=== PATIENT | female | born 1950 | race Caucasian/White ===

== ENCOUNTER 2019-12-09 14:01 | Outpatient (CLI) | payer MEDICARE, BC, SELFPAY ==
--- NOTE | 2019-12-09 12:00 | DI.RAD_ITS ---
EXAM: XR HIP LT COMPLETE AP PELVIS CLINICAL HISTORY: eval R hip DJD and L HERLINDA pain. TECHNIQUE: 2D digital imaging was performed. COMPARISON: No exams were available for comparison FINDINGS: BONES: No acute fracture is present. No bony destructive lesion is seen. JOINTS: No dislocation present. There are postsurgical changes of a left total hip replacement. The orthopedic hardware appears in good position. The right hip shows marked narrowing of the joint spac e and subchondral sclerosis. SOFT TISSUE: Normal. IMPRESSION: 1. Left THR. 2. Marked joint space narrowing of the right hip. DATA REPOSITORY: RADIATION DOSE DELIVERED:
== END 2019-12-09 14:21 ==
PROVIDERS: PCP Internal Medicine; Referring Provider Internal Medicine; Visit Provider Student in an Organized Health Care Education/Training Program
DX: Z96.642 Presence of left artificial hip joint (principal); M16.11 Unilateral primary osteoarthritis, right hip; M25.551 Pain in right hip
CPT/HCPCS: 99203; 73502

== ENCOUNTER 2019-12-27 02:00 | Outpatient (CLI) | payer MEDICARE, BC, SELFPAY ==
[2019-12-30 10:14] LABS: SARS-CoV-2 RNA Not Detected (NotDetected); SARS-CoV-2 RNA Source Nasal/Nares
== END 2019-12-27 02:20 ==
PROVIDERS: PCP Internal Medicine; Visit Provider Student in an Organized Health Care Education/Training Program
DX: Z01.818 Encounter for other preprocedural examination (principal); Z11.59 Encounter for screening for other viral diseases; M16.11 Unilateral primary osteoarthritis, right hip
CPT/HCPCS: U0003

== ENCOUNTER 2019-12-27 02:29 | Outpatient (CLI) | payer MEDICARE, BC, SELFPAY ==
[2019-12-27 10:15] LABS: HCT 42.4 % (36.0-46.0); MCH 32.6 pg (27.0-33.0); MCV 98.8 fL (80-95); MPV 9.3 fL (8.0-11.0); Platelet Count 265 10^3/uL (130-400); RBC 4.29 10^6/uL (3.93-5.22); RDW 13.2 % (11.7-14.6); RDW-SD 47.5 fL; WBC 6.04 10^3/uL (4.4-10.8)
[2019-12-27 10:50] LABS: Anion Gap 4.9 mmol/L (3-11); BUN 29 mg/dL (7-18); CO2 31.1 mmol/L (21.0-32.0); CREATININE 0.88 mg/dL (0.55-1.02); Calcium 9.8 mg/dL (8.5-10.1); Chloride 105 mmol/L (98-107); Glucose 103 mg/dL (74-106); Potassium 4.4 mmol/L (3.5-5.1); Sodium 141 mmol/L (136-145)
== END 2019-12-27 02:49 ==
PROVIDERS: PCP Internal Medicine; Visit Provider Student in an Organized Health Care Education/Training Program
DX: Z01.818 Encounter for other preprocedural examination (principal); Z11.59 Encounter for screening for other viral diseases; M16.11 Unilateral primary osteoarthritis, right hip
CPT/HCPCS: 36415; 80048; 85027; 86850; 86900; 86901; U0003

== ENCOUNTER 2019-12-31 06:08 | Observation (INO) | payer MEDICARE, BC, SELFPAY ==
--- NOTE | 2019-12-19 14:20 | PDOC.ANES ---
Date of service: 12/19/19 Time of Service: 14:20 Anesthesia Note Report Anesthesia Note: Anesthesia Note: Asked to review case by Nicole for upcoming HERLINDA. History of pulmonary fibrosis/SOB related to chemotherapy/radiation from Hodgkin lymphoma, CAD (60% LAD stenosis), and moderate aortic stenosis (KIKO 1.2 cm2) with mild AR and LVEF 69%. [place] [facility] [place] (12 mg 0.75% bup, 1 attempt). Given that her cardiac and pulmonary issues have been stable, and she has had a recent HERLINDA under spinal anesthesia without issue, she is an appropriate candidate for surgery at [facility].
[2019-12-31] VITALS (9 sets, daily range): BP systolic 92–135; BP diastolic 32–92; PULSE 57–76; RESP 15–26; TEMP 36.1–36.6; O2SAT 97–100
[2019-12-31] MEDS: Acetaminophen 500 MG TAB 1000 MG PO ×2 (06:59→13:59)
[2019-12-31] MEDS: Celecoxib 200 MG CAP 400 MG PO (06:59)
[2019-12-31] MEDS: Lactated Ringers 1,000 ML 80 ML IV (06:59)
[2019-12-31] MEDS: ceFAZolin 2 GM/50 ML BAG IVPB (07:31)
--- NOTE | 2019-12-31 07:31 | W.PM.DS.N ---
Date of service: 12/31/19 Time of Service: 13:22 DS: Diagnosis Discharge Diagnosis (1) Osteoarthritis of right hip: Status: Acute Discharge Plan Disposition Patient Disposition: HOME Condition: Good Discharge Details Reason For Visit: Right Hip Replacement Admit Date/Time: 12/31/19 06:08 Admit Provider: Papo Rivera Attending Provider: Papo Rivera Primary Care Provider: Mirna Rosales Hospital Course Hospital Course: Patient was admitted to the medical/surgical floor following the procedure. The surgery was tolerated well without any notable medical, surgical, or anesthetic complications. Mobilization began postoperatively. She was voiding spontaneously. Vitals were stable. Physical therapy worked with the patient and was cleared for discharge home. No acute medical issues. Pain was controlled on oral regimen. Home Meds and New Rx's Prescriptions: New acetaminophen 500 mg tablet 1,000 mg PO Q8H PRN (Reason: pain) Qty: 90 RF: 3 aspirin 81 mg tablet,delayed release (DR/EC) 81 mg PO BID Qty: 60 RF: 0 celecoxib 200 mg capsule 200 mg PO BID PRN (Reason: pain) Qty: 60 RF: 1 docusate sodium [Colace] 100 mg capsule 100 mg PO BID PRNQty: 10 RF: 0 oxycodone 5 mg tablet 5 mg PO Q4H PRNQty: 12 RF: 0 Continued atorvastatin 40 mg tablet 40 mg PO HS RF: 0 amlodipine 5 mg tablet 5 mg PO DAILY RF: 0 valacyclovir 500 mg tablet 500 mg PO DAILY PRNRF: 0 esomeprazole magnesium 40 mg capsule,delayed release(DR/EC) 40 mg PO DAILY RF: 0 furosemide 20 mg tablet 20 mg PO DAILY RF: 0 metoprolol succinate 25 mg tablet extended release 24 hr 25 mg PO DAILY RF: 0 losartan 100 mg tablet 100 mg PO DAILY RF: 0 Discontinued aspirin 81 mg Capsule,Delayed Release(Dr/Ec) 81 mg PO DAILY RF: 0 Discharge Instructions Additional Instructions: Dr. Rivera's Total Hip Discharge Instructions Activity: The most important activity is to walk. You should try to take short walks a few times a day. You have no restrictions on movement or positioning, but do not try to force what you do. You will find some stiffness and weakness with hip flexion (lifting your knee). Do not try to strengthen this too early, continue to practice walking and stairs and this will come. - Outpatient physical therapy can be helpful to help return you to a normal gait and improve your flexibility and strength. This can start around 2 weeks. For most patients, it?s not necessary. Usually this is determined at the time of discharge or at the first post-operative visit. - You should wear the TEJAS hose on both legs for 2 weeks. You may remove those at night. These prevent blood pooling and swelling. Dressing: Keep the surgical dressing in place for at least one week, although it may stay in place untill follow-up. It may get wet after 3 days but avoid soaking the dressing. If it gets wet, just lightly pat dry. Most people prefer to cover the dressing with some ClingWrap, Saran Wrap, to keep it dry. After the first week it may be removed if desired and then replaced with light gauze and tape or nothing. It is important to always keep some gauze or the dressing between skin folds, especially when you are sitting, so the incision is not folded over on itself at the belly fold. Medications: - You should take Tylenol and an anti-inflammatory Celebrex as your primary pain control medications. If the Celebrex is too expensive or not covered, you may take 1-2 Aleve twice a day. - You have been prescribed a stronger pain medication Oxycodone for breakthrough pain, take as needed as prescribed. - You should continue your stomach acid reduction agent Esomeprazole to help reduce stomach acid and reflux. - You will be taking Aspirin 81mg twice a day for DVT prevention unless instructed otherwise. This will be for 4 weeks. - If you have constipation you should take Colace or Miralax (both [id number]). It takes most people 3-4 days to have a bowel movement. Follow-up: 2 weeks. If you have any acute concerns or questions, please do not hesitate to contact the office at [phone]. You may contact Dr. Rivera with any questions after hours through the hospital at [phone] or on his cell phone at [phone]. Stand Alone Forms: DSU Post op Instructions Referrals: Papo Rivera MD [ [facility] STAFF PHYSICIAN] - Activity:: Activity as Tolerated Equipment/Supplies:: Walker Diet:: As Tolerated Discharge Orders Discharge Orders: Discharge Order (Routine); Ordered 12/31/19 Ordered By: Papo Rivera DS: Summary Status at Discharge Functional status at discharge: uses cane/walker Overall status at discharge: patient is progressing back to baseline Mental Status: mental status grossly normal Speech and Movement: speech and movement normal Mood: congruent mood Affect: normal affect Exam Psych Mental Status: mental status grossly normal Speech and Movement: speech and movement normal Mood: congruent mood Affect: normal affect DS: Data Vitals/I&O Vitals and I&O: Vital Signs Temperature 36.4 C L 12/31/19 06:32 Pulse 76 12/31/19 06:32 Pulse Rhythm Regular 12/31/19 06:32 Respiratory Rate 16 12/31/19 06:32 Respiratory Effort 12/31/19 06:32 Respiratory Depth Normal 12/31/19 06:32 Respiratory Pattern Normal 12/31/19 06:32 Blood Pressure 114/52 L 12/31/19 06:32 Pulse Oximetry 100 12/31/19 06:32 Oxygen Delivery Method Room Air 12/31/19 06:32 Oxygen Flow Rate 0 12/31/19 06:32 Pain Level 0 12/31/19 06:32 Intake & Output 12/30/19 12/30/19 12/31/19 11:59 23:59 11:59 Weight 71.214 kg 72 kg PFSH Medical History Atrophic vaginitis Bleomycin lung toxicity Chemotherapy-induced neuropathy Chronic headache disorder Coronary atherosclerosis Esophageal motility disorder Fatigue Fibromyositis Gastroesophageal reflux disease Hodgkin lymphoma In remission since 2004 Hypertensive disorder Murmur, heart Surgical History H/O total hip arthroplasty left 04/11/2018 Hx of cholecystectomy Hx of tonsillectomy Social History Smoking/Tobacco Use Status: Never Smoking risk assessment performed?: Yes Drug use: Never Current gender identity: female
[2019-12-31] MEDS: Bupivacaine 0.25% Pres-Free 30 ML VIAL (08:50)
[2019-12-31] MEDS: Ketorolac 30 MG/ML VIAL (08:50)
--- NOTE | 2019-12-31 08:57 | DI.RAD_ITS ---
EXAM: XR HIP RT IN OR CLINICAL HISTORY: Osteoarthritis of right hip TECHNIQUE: 2D and realtime digital imaging was performed. CONTRAST MATERIAL: Refer to procedure report. COMPARISON: No exams were available for comparison FINDINGS: Fluoroscopy was provided for Dr. Rivera during the performance of a placement of a right total hip arthroplasty. Please refer to the procedure report for complete details. Fluoro time: 31.9 seconds IMPRESSION: RADIATION DOSE DELIVERED:
--- NOTE | 2019-12-31 11:11 | PT.INIE ---
Date of service: 12/31/19 Time of Service: 11:11 PT Notes Visit Reasons: Right Hip Replacement Physical Therapy Inpatient Initial Evaluation Date: 12/31/2019 Referring Doctor: Papo Rivera MD PT Orders: PT CONSULT: Status post Ortho surgery Precautions: Fall. Standard. WBAT on right LE. Patient Profile/Admitting Diagnosis: Mohan is a 69-year-old female with osteoarthritis of the right hip and is status post right total hip arthroplasty postoperative day 0. PMHX: Medical History Atrophic vaginitis Bleomycin lung toxicity Chemotherapy-induced neuropathy Chronic headache disorder Coronary atherosclerosis Esophageal motility disorder Fatigue Fibromyositis Gastroesophageal reflux disease Hodgkin lymphoma Hypertensive disorder Social History/Home Situation: Lives with significant other in a private home with no steps to enter. Independent with all aspects of ADLs prior to surgery. Equipment Owned/DME: Front wheeled walker Subjective: Reports 2/10 pain in the right hip with transfer and ambulation tasks. Denies headache, chest pain, and dizziness throughout. Objective: General Observation: Supine in bed. IV in the right UE. TEDS in B legs. Mepilex Ag over surgical incision. Mental Status: Alert and oriented x4 Pain: 2/10 in right hip Vital Signs: Within normal limits as measured by nurse Hoffman immediately before PT session. ROM: Right Upper Extremity: Shoulder Flexion WFL. Shoulder abduction WFL. Elbow flexion WFL. Wrist flexion WFL. Opening and closing of hand WFL. Left Upper Extremity: Shoulder Flexion WFL. Shoulder abduction WFL. Elbow flexion WFL. Wrist flexion WFL. Opening and closing of hand WFL. Right Lower Extremity: Hip flexion WFL. Hip abduction WFL. Knee flexion WFL. Ankle dorsiflexion WFL. Ankle plantarflexion WFL. Left Lower Extremity: Hip flexion WFL. Hip abduction WFL. Knee flexion WFL. Ankle dorsiflexion WFL. Ankle plantarflexion WFL. Strength: Right Upper Extremity: Shoulder flexors 5/5. Shoulder abductors 5/5. Elbow flexors 5/5. Elbow extensors 5/5. Sales Secretary strong. Left Upper Extremity: Shoulder flexors 5/5. Shoulder abductors 5/5. Elbow flexors 5/5. Elbow extensors 5/5. Sales Secretary strong. Right Lower Extremity: Hip flexors 4/5. Hip abductors 4/5. Knee flexors 4/5. Knee extensors 4/5. Ankle dorsiflexors 5/5. Ankle plantarflexors 5/5. Left Lower Extremity:Hip flexors 5/5. Hip abductors 5/5. Knee flexors 5/5. Knee extensors 5/5. Ankle dorsiflexors 5/5. Ankle plantarflexors 5/5. Sensation: Reports numbness to bilateral gluteal areas and feet. Bed Mobility/Transfers: Rolling supervision Supine to sit supervision Sit to supine supervision Sit to stand standby assist, cues given for hand placement Stand to sit standby assist, cues given for hand placement Bed to chair standby assist, cues given for hand placement Chair to bed standby assist, cues given for hand placement Gait: 200 feet using front-wheeled walker with step through gait pattern. Reports feeling funky on the soles of her feet. Stephanie slow. THERAEX: Lateral heel raises x 15, partial knee bends x15 while holding onto front wheeled walker requiring standby assist only and minimal cueing for correct technique. Education on HEP was done for the session as well. Balance: Static Sitting: Normal Dynamic Sitting: Normal Static Standing: Fair Dynamic Standing: Fair Special Tests: Mobility Limitations Standardized Measure [facility] 6 clicks Basic Mobility Inpatient Short Form: Raw Score: 22 CMS Score: 21% deficit Informed Consent/Education: Patient instructed in purpose of PT consult and plan of care. Assessment: Mohan demonstrates the need for wheeled walker for all mobility ADL performance, increased completion time is for an ambulation test before, and increased fall risk due to postoperative status. Mohan is a 69-year-old female with osteoarthritis of the right hip and is status post right total hip arthroplasty postoperative day 0. Patient presents with clinical signs and symptoms consistent with current/admitting diagnoses that have resulted to mobility limitations, gait instability, generalized weakness, and impairment of motor control as demonstrated by the following impairment level findings: 1. Decreased strength to right hip major muscle groups 2. Impaired standing balance Impairments are contributing to the following functional limitations: 1. Inability to safely ambulate without assistive device 2. Increase completion time for mobility ADL performance 3. Increased fall risk Patient is assessed as a 77880 moderate complexity based on the following: History: 69-year-old female with impairment level findings, functional limitations, and past medical history as indicated above Examination: Demonstrable impairment in strength, balance, and mobility level with underlying impairments and functional limitations as documented above Presentation: Stable Decision Makin moderate complexity Goals: N/A. PT eval and 1 treatment session only for education and training on use of front wheeled walker with mobility ADL performance and for HEP. Plan of Care/Treatment Plan: N/A. PT eval and 1 treatment session only for education and training on use of front wheeled walker with mobility ADL performance and for HEP. DISCHARGE RECOMMENDATIONS: Home when medically cleared by orthopedic surgeon. Outpatient PT services in order to facilitate with premorbid independent level. TREATMENT CODE/TIME: 58310 x 25 minutes, 60514 x 14 minutes beginning at 11:11 AM. Thank you for the opportunity to participate in the care of this patient. Leora Bui PT, DPT, CLT [facility] [place], [place]
--- NOTE | 2019-12-31 13:59 | NUR.NOTE ---
Nursing Note: C/O pain. Tylenol 1000 mg PO given with effect pending. Discharge instructions reviewed. Verballized understanding. Discharge pending arrival of [id number]. Dr. Rivera in.06/06
--- NOTE | 2019-12-31 22:47 | ROE_ITS ---
Date of service: 12/31/19 Time of Service: 09:06 Operative Note Operative Note DATE OF PROCEDURE: 12/31/19 PRE-OP DIAGNOSIS: Right Hip Osteoarthritis POST-OP DIAGNOSIS: same PROCEDURE: Right Anterior Total Hip Arthroplasty SURGEON: Papo Rivera ENVELOPE FOLDING MACHINE ADJUSTER: Antonio Bowman ANESTHESIA: spinal ESTIMATED BLOOD LOSS: 200 PATHOLOGY: none sent COMPLICATIONS: None Patient was transported to: PACU Patient's condition: stable Implants: 1. Depuy [place] Acetabular Component, 52mm 2. Depuy Acetabular Liner, [id number] 3. Depuy Corail Standard Collared Femoral Stem, Size 13 4. Depuy Altrx Ceramic Femoral Head, Size 36+1.5mm Indications: I have seen Jhon in clinic for symptoms of hip arthritis, confirmed with radiographic findings. She has exhausted nonoperative methods and was having significant limitations in daily function and desired better function and less pain. I discussed the technical details of a hip replacement. I explained the risks of the procedure to include, but not limited to, bleeding, infection, pain, stiffness, fracture, damage to nerves and vessels, damage to muscles and tendons, loosening, instability, leg length inequality, need for repeat procedure, blood clot and cardiopulmonary demise. Despite these risks, Fadia elected to proceed. Findings: There was significant signs of arthritis throughout the hip. Procedure Description: Fadia was greeted in the preoperative holding area where the correct side was identified and marked. The consent was reviewed with the patient and signed. The history and physical was updated. All questions were answered. Fadia was taken back to the operating room. A spinal anesthestic was then administered. The feet were wrapped with cast padding and Coban and then placed into the boot liners and then into the boots. Care was taken to protect the skin and make sure the heels were fully down and the boots were stable. The patient was then positioned onto the HANA table. Both legs were held in a neutral position. SCDs were applied. The patient was then slid down onto a peroneal post. A preoperative AP pelvis was obtained to serve as a reference for determining leg lengths. Prophylactic antibiotics in the form of Cefazolin were administered. 1g of Tranxemic Acid was given intravenously within 30 minutes of incision. The right leg was then prepped with Chloraprep and draped in a standard fashion. A second prep with Chloraprep was performed prior to placement of a shower- curtain type drape with Iodine impregnated skin protection. A timeout to confirm correct identity, side and site, procedure, allergies, anesthesia, and medical concerns was performed. An obliquely oriented incision was made starting lateral to the ASIS and running distal over the Tensor Fascia Shahla (TFL) muscle belly toward the fibular head, approximately 10cm. The skin and soft tissue was dissected sharply, through Bert?s fascia, and to the fascia of the TFL. With the fascia and superior border of the IT band identified, the fascia was incised with a new knife just above any perforators from the IT band. The TFL muscle belly was bluntly dissected away from the fascia and moved laterally. The fat between TFL and rectus was identified to ensure the dissection was not within the TFL. Blunt dissection created space between abductors and the capsule and retractor was placed over the lateral femoral neck. The fibers of the rectus femoris tendon were identified and these were freed from the anterior capsule. A second cobra retractor was placed around the medial femoral neck. The TFL was further retracted laterally to show the deep fascia. Careful dissection through this layer identified three main crossing vessels of the lateral femoral circumflex. These were cauterized in multiple locations and then cut without any noticeable bleeding. The TFL was further released bluntly from the deep fascia to expose anterior hip capsule and fat The Fredrick orthopaedic retractor was then placed beneath the TFL and against sartorius and medial soft tissues to protect and retract the soft tissues. A T-capsulotomy was then performed starting at the superior lateral acetabulum and moving distally to the intertrochanteric ridge. These capsular flaps were tagged with a No. 1 Ethibond and elevated from within. The capsular flaps were released to the shoulder of the lateral neck and to the lesser trochanter to give excellent visualization of the proximal femur. A neck osteotomy was performed using an oscillating saw based on preoperative templates. This cut started in the shoulder and of the lateral neck and exited medially. The saw was at all times directed medially to avoid injury to the greater trochanter. 6cm of traction was applied to the leg and the osteotomy opened. The femoral head was removed with a corkscrew, making sure to protect the TFL on its exit. Traction was released after head removal. This was measu red on the back table to determing the starting reamer size. Portions of the rectus obscuring visualization were minimally elevated off the superior acetabulum. An anterior retractor was placed over the anterior wall between capsule and labrum and attached to the Gripper retraction system. A posterior retractor was placed similarly. This provided excellent visualization. The contents of the cotyloid fossa were removed with electrocautery and the labrum was removed with a knife. There was a notable floor osteophyte. There was significant chondromalacia of the superior acetabulum. Acetabular reaming began with a 48mm reamer. This first reaming was directed anterior to posterior and medial to get down to the true floor. This was inspected and reamed until the true floor was reached. The anterior retractor was then released and entry and exit was provided by traction on the capsular flaps. I then reamed sequentially up to a 52mm reamer where good fit was obtained. The larger reamers were oriented based on anatomical reference of the anterior and lateral thompson to ensure proper abduction and anteversion. Positioning and size was confirmed with the fluoroscopy. A 52mm Depuy [place] acetabular component was selected. The acetabulum was reamed around the periphery with the selected acetabular size to prevent a rim fit. The deep tissues were irrigated. The acetabular component was then impacted in a position of about 40-45 degrees of abduction and 15-20 degrees of anteversion, using the patient?s anatomy as the ultimate landmark. Fluoroscopy was used to confirm this. There was excellent ground support equipment assembler of the acetabular component and the inserting handle was removed. The acetabular liner, Depuy [id number] polyethylene liner, was inserted and lined up with the tines of the acetabular component. There was no soft tissue interposition. The liner was then impacted into position and confirmed to be well-seated. A portion of the james-articular cocktail was then injected around the acetabulum into the capsule and periosteum. This cocktail consisted of 50cc of 0.25% Bupivicaine and 20cc of Exparel, expanded to a total of 120cc. Traction was released from the femur. The leg was rotated to 120 degrees. Any remaining medial capsule was released until the lesser trochanter was easily palpable. A Graf retractor was placed medially. The lateral capsule was further released into the shoulder to allow access to the greater trochanter. A Graf retractor was placed over the greater trochanter which allowed the trochanter to flip in front of the capsule for excellent exposure. The leg was brought down into maximal extension and 20 degrees of adduction while ensuring there was no impingement on the acetabulum. Any remnant capsule within the trochanter was released. Piriformis and obturator externis were identified and protected. There was excellent access to the proximal femur. The lateral neck remnant was removed with a rongeur. A blunt canal probe was used to identify the canal and trajectory for later broaching. A box osteotome initiated the broach course. A small curved rasp and a curved curette were used to work laterally. Broaching then began with a size 8 Corail broach. This was inserted manually around the trochanter and into the canal before mallet blows. The broach was seated to a few millimeters below the cut level based on the neck cut and the preoperative template. Sequential broaching was continued with the [employer] pneumatic broaching device until a tight fit was obtained with good rotational control of the femur. A trial standard neck was inserted along with a +1.5 trial head. The leg was brought out of extension and adduction and then reduced with traction and internal rotation. The leg was stable anteriorly in a position of 30 degrees of extension and 90 degrees of external rotation. Fluoroscopy was used to ensure there was no fracture and the stem was seated well. Leg lengths were checked with an AP pelvis and pelvic reference points. [employer] navigation system was used to confirm appropriate positioning and leg length and offset. Once content with the desired offset and leg lengths, the leg was brought back into extension, external rotation and adduction. The periosteum and surrounding tissue was injected with remaining portion of the james-articular cocktail. The proximal femur was irrigated as well as the deep tissues. The Depuy Corail standard collared stem, size 13, was then manually inserted into the proximal femur making sure to control rotation. It was then malleted into position with light blows, giving breaks to allow bone expansion and decrease risk of fracture. The selected Depuy Altrx Ceramic Head, size 36+1.5mm, was then placed onto the clean and dry trunnion and secured with impaction onto the tapered fit. The leg was brought back out of extension and adduction and reduced with traction and internal rotation. Stability was confirmed with no shuck at 90 degrees of external rotation and 30 degrees of extension. No impingement through range of motion arc. Final x-ray images were obtained with fluoroscopy to confirm adequate positioning and no intraoperative fracture. The deep tissues were thoroughly irrigated with Irrisept chlorhexadine solution. The second dose of TXA 1g was administered intravenously.The capsule was then reapproximated with the previously placed Ethibond sutures. The TFL fascia was finally closed with a No. 2 Stratafix, barbed suture. Deep tissues were then reapproximated with 0 Vicryl and a running 2-0 Vicryl. The skin was closed with a running 4-0 Monocryl in a subcuticular fashion. This was reinforced with skin glue. A Mepilex silver dressing was applied. At the end of the case, all counts were correct. Fadia was transferred to the hospital bed without difficulty and suffering no apparent complication. She has a good prognosis. Physical therapy will start today and without restrictions, weight-bearing as tolerated. Aspirin 81mg BID will be used for DVT prophylaxis.
== END 2019-12-31 14:13 | disposition home or self-care (01) ==
PROVIDERS: Admitting Provider Student in an Organized Health Care Education/Training Program; PCP Internal Medicine; Visit Provider Student in an Organized Health Care Education/Training Program
PROC: (CPT 27130; principal; 2019-12-31 07:30)
DX: M16.11 Unilateral primary osteoarthritis, right hip (principal); I25.10 Atherosclerotic heart disease of native coronary artery without angina pectoris; I35.0 Nonrheumatic aortic (valve) stenosis; G62.2 Polyneuropathy due to other toxic agents; T45.1X5S Adverse effect of antineoplastic and immunosuppressive drugs, sequela
CPT/HCPCS: 27130; 97162; 97530; NC; 73501; J0690; J1885; J2405

== ENCOUNTER 2020-01-16 10:15 | Outpatient (CLI) | payer MEDICARE, BC, SELFPAY ==
--- NOTE | 2020-01-16 09:00 | DI.RAD_ITS ---
EXAM: XR HIP RT COMPLETE AP PELVIS CLINICAL HISTORY: 1st post op brittnee. TECHNIQUE: 2D digital imaging was performed. COMPARISON: CR XR HIP LT COMPLETE AP PELVIS from 12/09/2019 FINDINGS: BONES: There are stable post operative changes present. No fracture or dislocation. JOINTS: The joint spaces are well maintained. No joint effusion is present. SOFT TISSUE: Normal. IMPRESSION: Stable postoperative changes. DATA REPOSITORY: RADIATION DOSE DELIVERED:
== END 2020-01-16 10:35 ==
PROVIDERS: PCP Internal Medicine; Referring Provider Internal Medicine; Visit Provider Student in an Organized Health Care Education/Training Program
DX: Z96.641 Presence of right artificial hip joint (principal); Z47.1 Aftercare following joint replacement surgery
CPT/HCPCS: 73502

== ENCOUNTER → 2020-02-14 08:28 | Outpatient (BNVA) | payer MEDICARE, BC, SELFPAY | PROVIDERS: PCP Internal Medicine; Referring Provider Internal Medicine; Visit Provider Student in an Organized Health Care Education/Training Program | DX: Z96.641 Presence of right artificial hip joint (principal); Z47.1 Aftercare following joint replacement surgery ==

== ENCOUNTER 2020-03-26 11:33 | Outpatient (CLI) | payer MEDICARE, BC, SELFPAY ==
--- NOTE | 2020-03-26 09:45 | DI.RAD_ITS ---
EXAM: XR HIP RT AP LAT ONLY CLINICAL HISTORY: R HERLINDA. TECHNIQUE: 2D digital imaging was performed. COMPARISON: CR XR HIP RT COMPLETE AP PELVIS from 01/16/2020 FINDINGS: There is stable alignment of the components of the prosthesis of the right knee. No fracture or loos ening. Appearance is unchanged from December 2019. IMPRESSION: DATA REPOSITORY: RADIATION DOSE DELIVERED:
== END 2020-03-26 11:53 ==
PROVIDERS: PCP Internal Medicine; Referring Provider Internal Medicine; Visit Provider Student in an Organized Health Care Education/Training Program
DX: Z96.641 Presence of right artificial hip joint (principal); Z47.1 Aftercare following joint replacement surgery
CPT/HCPCS: 73502

== ENCOUNTER → 2020-05-21 09:13 | Outpatient (BNVA) | payer MEDICARE, BC, SELFPAY | PROVIDERS: PCP Internal Medicine; Referring Provider Internal Medicine; Visit Provider Student in an Organized Health Care Education/Training Program | DX: Z47.1 Aftercare following joint replacement surgery (principal); Z96.641 Presence of right artificial hip joint; M25.551 Pain in right hip | CPT/HCPCS: 99213 ==

== ENCOUNTER 2020-06-01 01:45 | Outpatient (CLI) | payer MEDICARE, BC, SELFPAY ==
--- NOTE | 2020-06-01 07:45 | DI.CT_ITS ---
EXAM: CT LOWER EXTREMITY RT WO CLINICAL HISTORY: pain after right HERLINDA,Z96.649,Z96.641,H/O TOTAL RT HIP REPLACEMENT. TECHNIQUE: Imaging Protocol: Axial computed tomography images with coronal and sagittal reformatted images were created and reviewed. COMPARISON: CR XR HIP RT AP LAT ONLY from 03/26/2020 FINDINGS: Bones: The patient has a right total hip replacement. No lucencies are seen in or about the orthope dic hardware to suggest loosening or infection. The osseous structures and articular surfaces are in tact. Bony alignment is satisfactory. No cellulitic or osteomyelitic changes are identified. There is no evidence of joint space narrowing or cystic degeneration seen. No lytic or sclerotic lesions a re identified. Soft Tissues: Normal. IMPRESSION: Stable right total hip replacement. No CT evidence to suggest loosening or infection. RADIATION DOSE DELIVERED: 269.26mGy.cm Total DLP 269.26mGy.cm Total DLP DATA REPOSITORY: All CT scans at this facility are submitted to the National Radiology Data Registry (NRDR) Dose Index Registry (DIR) with the [employer] [place] (A[employer]). RADIATION OPTIMIZATION: All CT scans at this facility use at least one of these dose optimization te chniques: automated exposure control; mA and/or kV adjustment per patient size (includes targeted exa ms where dose is matched to clinical indication); or iterative reconstruction.
== END 2020-06-01 02:05 ==
PROVIDERS: PCP Internal Medicine; Visit Provider Physician Assistant
DX: M25.551 Pain in right hip (principal); Z96.641 Presence of right artificial hip joint
CPT/HCPCS: 73700

== ENCOUNTER 2020-06-01 04:32 | Outpatient (CLI) | payer MEDICARE, BC, SELFPAY ==
[2020-06-01 11:12] LABS: Abs Immature Grans 0.02 10^3/uL (0.0-0.06); Absolute Basophil Count 0.06 10^3/uL (0.0-0.2); Absolute Eosinophil Count 0.33 10^3/uL (0.0-0.7); Absolute Monocyte Count 0.51 10^3/uL (0.1-0.8); Absolute Neutrophil Count 3.42 10^3/uL (1.2-6.7); Basophils % 0.9; Eosinophils % 5.2; HCT 42.5 % (36.0-46.0); HGB 14.1 g/dL (11.2-15.7); Immature Grans % 0.3; Lymphocytes % 31.5; MCH 31.9 pg (27.0-33.0); MCHC 33.2 % (32.0-36.0); MCV 96.2 fL (80-95); MPV 9.2 fL (8.0-11.0); Neutrophils % 54.1; Nucleated RBC 0 %; Platelet Count 270 10^3/uL (130-400); RBC 4.42 10^6/uL (3.93-5.22); RDW 13.1 % (11.7-14.6); RDW-SD 46.5 fL; WBC 6.34 10^3/uL (4.4-10.8)
[2020-06-01 11:16] LABS: ESR 9 mm//hr (0-30)
[2020-06-01 12:09] LABS: C-Reactive Protein 0.12 mg/dL (0.0-0.3)
== END 2020-06-01 04:33 | disposition home or self-care (01) ==
PROVIDERS: PCP Internal Medicine; Visit Provider Physician Assistant
DX: M25.551 Pain in right hip (principal); Z96.641 Presence of right artificial hip joint
CPT/HCPCS: 36415; 85652; 73700; 85025; 86140

== ENCOUNTER 2021-05-03 04:14 | Outpatient (CLI) | payer MEDICARE, SELFPAY ==
[2021-05-03 13:05] LABS: Source Nasal/Nares
[2021-05-03 16:08] LABS: COVID-19 PCR Negative (Negative)
== END 2021-05-03 04:15 | disposition home or self-care (01) ==
LOC: LBO 04:14
PROVIDERS: PCP Internal Medicine; Visit Provider Plastic Surgery
DX: Z20.822 Contact with and (suspected) exposure to COVID-19 (principal); Z01.818 Encounter for other preprocedural examination
CPT/HCPCS: 87635; U0005

== ENCOUNTER 2023-02-15 09:07 | Outpatient (CLI) | payer MEDICARE, SELFPAY ==
--- NOTE | 2023-02-15 06:00 | DI.RAD_ITS ---
Exam(s) XR PAIN CLINIC CERVICAL SP 2V EXAM: XR PAIN CLINIC CERVICAL SP 2V CLINICAL HISTORY: Dx: Cervical Spondylosis TECHNIQUE: 2D and realtime digital imaging was performed. CONTRAST MATERIAL: Refer to procedure report. COMPARISON: No exams were available for comparison FINDINGS: Fluoroscopy was provided for Dr. Downey during the performance of a cervical medial branch block. Ple ase refer to the procedure report for complete details. Ka,r=1.72 mGy IMPRESSION:
[2023-02-15 09:17] VITALS: BP 134/75; PULSE 87; RESP 20; TEMP 36.5; O2SAT 95
[2023-02-15 10:07] VITALS: BP 132/58; PULSE 93; RESP 13; O2SAT 100
[2023-02-15] MEDS: Omnipaque 240 MG/ML 50 ML BTL IJ (10:11)
[2023-02-15] MEDS: Bupivacaine 0.5% Pres-Free 10 ML VIAL IJ (10:11)
--- NOTE | 2023-02-15 10:50 | PDOC.PAIN_ITS ---
Date of service: 02/15/23 Time of Service: 10:50 Pain Managment Procedure Note Procedure Note Procedure Note: PROCEDURE NOTE LEFT SIDED CERVICAL MEDIAL BRANCH BLOCKS Date of Service: February 15, 2023 Patient: Fadia Lomeli Provider: Joce Downey DO, MPH Fadia Lomeli has been referred to the [facility] for cervical medial branch blocks. Pre-operative diagnosis: Cervical Spondylosis without Myelopathy Post-operative diagnosis: Same Pre-procedure pain: VAS= 8-9/10 COMMENTS: I previously evaluated her in the office. Her symptoms are the same. She did slip this morning and bumped the left side of her forehead. Rudywas interviewed and the medical records were reviewed. There were no medical, pharmacologic, radiographic or other structural contraindications to attempting fluoroscopically guided local anesthetic cervical medial branch blocks. Risks and potential side effects were discussed. I also discussed the potential benefit(s) of the procedure with Fadia, and voiced concerns were addressed. After Fadia was completely informed about the procedure, the printed consent form was signed. A standard time-out procedure was performed. Fadia was placed in the lateral decubitus position on the fluoroscopy table with the effected side up. Automated blood pressure cuff and pulse oximeter were applied. The skin entry points for approaching the anatomic target points of the segmental medial branches of Left C3,C4,C5 and C6 were identified with fluoroscopy and marked. The skin at the target site area was thoroughly prepared with Chlorhexadine. The skin was then draped. Next, a 25 gauge 3.5 spinal needle was placed under fluoroscopic guidance down on to the target point (the articular pillar) for each respective segmental medial branch. Position was confirmed in A/P and lateral views. Aspiration revealed no blood or clear fluid. Next, 0.25ml of omnipaque 240 was injected at each level. No contrast following a vascular or neural pattern was visualized under continuous fluoroscopy. Next, 0.25 ml of preservative-free 0.5% bupivicaine was injected at each level. (49 mls of Omnipaque was wasted) There was no unusual discomfort expressed by Fadia. The needles were withdrawn without difficulty. Fadia was observed and was without hemodynamic, neurologic, or allergic reactions.? Fluoroscopic images were digitally archived. Fadia's vital signs were stable throughout the procedure and were as recorded in the docflowsheet by the nursing staff. Provacative testing using the Modified Oden's facet loading test Left side Directly before the block VAS (0-10) = 8/10 Five minutes after the block VAS (0-10) = 1/10 Percentage relief obtained with this diagnostic block 90% Any improved physical functioning directly after the blocks? Able to move her neck in all directions with minimal pain Follow up plans and appointments were discussed with Fadia. Fadia was instructed to keep careful note of how the usual pain was modified by these injections. Specifically, to keep a pain diary for the next 4 hours using a numeric pain scale of 0-10 and report these results. Post procedure instruction was given as documented in the nursing documentation and having met discharge criteria, the patient was [facility] from the [facility]. Based on the medial branches blocked today, if Fadia has adequate relief and we are able to proceed to radiofrequency ablation, the treatment should result in the denervation of the Left C3-C4, C4-C5, and C5-C6 facet joints. We would expect to denervate a total of 3 facets during the radiofrequency ablation. COMMENTS: No apparent complications. Post-procedure pain: VAS= 1/10 Fadia will call back with 0-4 hour post-procedure pain scores. I did recommend that she see urgent care for her left forehead laceration. This is a 1 cm full thickness laceration that did not stop bleeding with bandages during the procedure. We did place a sterile strip to close the laceration and recommended urgent care for likely 1-2 stitches. I personally performed the entire procedure. JOCE DOWNEY DO, MPH ABPM&R-subspecialty board certification in Pain Medicine [facility] [facility]
== END 2023-02-15 09:08 | disposition home or self-care (01) ==
LOC: PC 09:07
PROVIDERS: PCP Internal Medicine; Visit Provider Preventive Medicine Occupational Medicine
DX: M54.2 Cervicalgia (principal); M47.812 Spondylosis without myelopathy or radiculopathy, cervical region
CPT/HCPCS: 00123; 64490; 64491; 64492; 72040; Q9967

== ENCOUNTER 2023-03-15 15:13 | Outpatient (CLI) | payer MEDICARE, SELFPAY ==
--- NOTE | 2023-03-15 06:00 | DI.RAD_ITS ---
Exam(s) XR PAIN CLINIC CERVICAL SP 2V EXAM: XR PAIN CLINIC CERVICAL SP 2V CLINICAL HISTORY: Dx: Cervical Spondylosis TECHNIQUE: 2D and realtime digital imaging was performed. Radiologist not present. CONTRAST MATERIAL: None. COMPARISON: No exams were available for comparison FINDINGS: Fluoroscopy was provided for pain management therapy. Please refer to procedure report or details. Radiation Exposure Index: Ka,r=1.53 mGy IMPRESSION: As above. RADIATION DOSE DELIVERED:
[2023-03-15 15:22] VITALS: BP 107/67; PULSE 77; RESP 20; TEMP 36.4; O2SAT 98
--- NOTE | 2023-03-15 15:57 | PDOC.PAIN_ITS ---
Date of service: 03/15/23 Time of Service: 15:57 Pain Managment Procedure Note Procedure Note Procedure Note: PROCEDURE NOTE LEFT SIDED CERVICAL MEDIAL BRANCH BLOCKS Date of Service: March 15, 2023 Patient: Fadia Lomeli Provider: Joce Downey DO, MPH Fadia Lomeli has been referred to the [facility] for cervical medial branch blocks. Pre-operative diagnosis: Cervical Spondylosis without Myelopathy Post-operative diagnosis: Same Pre-procedure pain: VAS= 7/10 COMMENTS: She did very well with her last CMBB on 02/15/23. Rudywas interviewed and the medical records were reviewed. There were no medical, pharmacologic, radiographic or other structural contraindications to attempting fluoroscopically guided local anesthetic cervical medial branch blocks. Risks and potential side effects were discussed. I also discussed the potential benefit(s) of the procedure with Fadia, and voiced concerns were addressed. After Fadia was completely informed about the procedure, the printed consent form was signed. A standard time-out procedure was performed. Fadia was placed in the lateral decubitus position on the fluoroscopy table with the effected side up. Automated blood pressure cuff and pulse oximeter were applied. The skin entry points for approaching the anatomic target points of the segmental medial branches of Left C3,C4,C5, and C6 were identified with fluoroscopy and marked. The skin at the target site area was thoroughly prepared with Chlorhexadine. The skin was then draped. Next, a 25 gauge 3.5 spinal needle was placed under fluoroscopic guidance down on to the target point (the articular pillar) for each respective segmental medial branch. Position was confirmed in A/P and lateral views. Aspiration revealed no blood or clear fluid. Next, 0.25ml of omnipaque 240 was injected at each level. No contrast following a vascular or neural pattern was visualized under continuous fluoroscopy. Next, 0.25 ml of preservative-free 0.5% bupivicaine was injected at each level. (49 mls of Omnipaque was wasted) There was no unusual discomfort expressed by Fadia. The needles were withdrawn without difficulty. Fadia was observed and was without hemodynamic, neurologic, or allergic reactions.? Fluoroscopic images were digitally archived. Fadia's vital signs were stable throughout the procedure and were as recorded in the docflowsheet by the nursing staff. Provacative testing using the Modified Oden's facet loading test Left side Directly before the block VAS (0-10) = 7/10 Five minutes after the block VAS (0-10) = 1/10 Percentage relief obtained with this diagnostic block 90% Any improved physical functioning directly after the blocks? Able to move her neck with ease. Follow up plans and appointments were discussed with Fadia. Fadia was instructed to keep careful note of how the usual pain was modified by these injections. Specifically, to keep a pain diary for the next 4 hours using a numeric pain scale of 0-10 and report these results. Post procedure instruction was given as documented in the nursing documentation and having met discharge criteria, the patient was discharged from the [facility]. Based on the medial branches blocked today, if Fadia has adequate relief and we are able to proceed to radiofrequency ablation, the treatment should result in the denervation of the Left C3-C4, C4-C5, and C5-C6 facet joints. We would expect to denervate a total of 3 facets during the radiofrequency ablation. COMMENTS: No apparent complications. Post-procedure pain: VAS= 1/10 Fadia will call back with 0-4 hour post-procedure pain scores. I personally performed the entire procedure. JOCE DOWNEY DO, MPH ABPM&R-subspecialty board certification in Pain Medicine [facility]
[2023-03-15 16:05] VITALS: BP 124/59; PULSE 87; RESP 20; O2SAT 96
[2023-03-15] MEDS: Nerve Block Tray 1 EACH MC (16:07)
[2023-03-15] MEDS: Bupivacaine 0.5% Pres-Free 10 ML VIAL IJ (16:07)
[2023-03-15] MEDS: Omnipaque 240 MG/ML 50 ML BTL IJ (16:07)
== END 2023-03-15 15:14 | disposition home or self-care (01) ==
LOC: PC 15:13
PROVIDERS: PCP Internal Medicine; Visit Provider Preventive Medicine Occupational Medicine
DX: M54.2 Cervicalgia (principal); M47.812 Spondylosis without myelopathy or radiculopathy, cervical region
CPT/HCPCS: 00123; 64490; 64491; 64492; 72040; J0665; Q9967

== ENCOUNTER 2023-06-01 09:52 | Outpatient (CLI) | payer MEDICARE, SELFPAY ==
--- NOTE | 2023-06-01 06:00 | DI.RAD_ITS ---
Exam(s) XR PAIN CLINIC CERVICAL SP 2V EXAM: XR PAIN CLINIC CERVICAL SP 2V CLINICAL HISTORY: DX: Cervical spondylosis. TECHNIQUE: Fluoroscopy was provided for the referring physician for guidance with performing pain cl inic injection procedure. COMPARISON: No exams were available for comparison FINDINGS: Please see procedure note for details. Fluoro time: 35.9 seconds RADIATION DOSE DELIVERED: Ronnier=3.42 mGy
[2023-06-01 10:11] VITALS: BP 132/58; PULSE 67; RESP 20; TEMP 36.7; O2SAT 98
[2023-06-01] MEDS: Midazolam 2 MG/2 ML VIAL IVP (10:50)
[2023-06-01] MEDS: fentaNYL 100 MCG/2 ML VIAL IVP (10:50)
[2023-06-01 11:45] VITALS: BP 126/56; PULSE 82; RESP 13; O2SAT 100
[2023-06-01] MEDS: Nerve Block Tray 1 EACH MC (11:52)
[2023-06-01] MEDS: Lidocaine 2% Multi-Dose 20 ML VIAL IJ (11:52)
[2023-06-01] MEDS: Bupivacaine 0.5% Pres-Free 10 ML VIAL IJ (11:53)
[2023-06-01] MEDS: Dexamethasone Sod. Phos./Pres-Free 10 MG/ML VIAL IJ (11:53)
[2023-06-01] MEDS: Lactated Ringers 500 ML 80 ML IV (11:55)
[2023-06-01] MEDS: methylPREDNISolone ACETATE 40 MG/ML VIAL (12:02)
--- NOTE | 2023-06-06 07:14 | PDOC.PAIN ---
Date of service: 06/01/23 Time of Service: 11:45 Pain Managment Procedure Note Procedure Note Procedure Note: PROCEDURE NOTE LEFT Cervical Radiofrequency Ablation Date of Service: June 01, 2023 Patient:? Fadia Lomeli? Provider:? Joce Downey DO, MPH Fadia Lomeli [facility] LEFT Cervical Radiofrequency Ablation with the [employer] Machine.? Pre Operative Diagnosis: Cervical Spondylosis without Myelopathy Post Operative Diagnosis: Same Pre procedure pain; VAS= 7/10 Comments: She did very well with her CMBBs PROCEDURE: 1. Left C3-C4 facet joint radiofrequency denervation 2. Left C4-C5 facet joint radiofrequency denervation 3. Left C5-C6 facet joint radiofrequency denervation Fadia?was interviewed and the medical record was reviewed.? There were no medical, pharmacologic, radiographic or other structural contraindications to attempting fluoroscopically guided LEFT Cervical Radiofrequency Ablation.?Risks and expected side effects as well as potential benefit of the procedure were reviewed with Fadia, and the patient's voiced concerns were addressed.? The printed consent form was signed.? Standard time-out procedure was performed. Fadia was brought to the procedure suite and placed on the exam table in a comfortable lateral recumbent position. A grounding pad was placed on the left abdomen. The place for the needle placement was obtained by manual palpation as well as radiographic confirmation. The sterile field was prepped by chlorhexidine and sterile drapes. Local anesthesia, both superficial and deep was provided by local infiltration of 3 ml Lidocaine 1%. Using fluoroscopic guidance, A 17g 50 mm radiofrequency introducer needle with a 2 mm active tip was placed overlying the left C3 cervical vertebra from the lateral approach and was advanced until bony contact was felt with the articular pillar. Attempted aspiration revealed no blood or cerebrospinal fluid. Motor testing was then performed with 2.0 volts and no upper extremity motor stimulation was observed. 1 ml of 2% Lidocaine was injected through the RF needle. A radiofrequency lesion of the Left medial branch of C3 was then performed at 80 degrees Celsius for 2 minutes and 30 seconds. There was no unusual discomfort expressed by Fadia. The needles were withdrawn without difficulty. Fadia was observed and was without hemodynamic, neurologic, or allergic reactions. Fluoroscopic images were digitally archived. The same procedure was repeated for Left C4, C5 and C6 medial branches. POST PROCEDURE EVALUATION: IMPRESSION: 1. Medication given is documented in the MAR 2. Follow up plan: [facility] to contact [facility] needed. This procedure may be repeated if the patient achieves at least 50% improvement in pain and/or function for at least 6 months. 3. Estimated Blood Loss: <5ml 4. Fluoroscopy time: Documented in the EMR Follow up plans and appointments were discussed with Fadia. Post procedure instruction was given as documented in nursing documentation and having met discharge criteria, Fadia was [facility] from the [facility]. COMMENTS: No apparent complications. Post-procedure pain: VAS= 2/10. I personally performed this entire procedure. JOCE DOWNEY DO, MPH ABPM&R - Subspecialty board certification in Pain Medicine [facility] [facility]
--- NOTE | 2023-06-06 19:45 | PDOC.PAIN ---
Date of service: 06/01/23 Time of Service: 12:00 US Guided Injections Type of Ultrasound Guided Injection: Middle back Bilateral Paraspinous and Rhomboid muscle Trigger Point Injection Referral Patient has been referred to the [facility] for Bilateral Paraspinous and Rhomboid muscle Middle back Trigger Point Injection for a chief complaint of Pre-Procedural Pain Score Pre-procedural pain score: 5/10 Reason for Exam Muscle pain Patient Interview Patient was interviewed and medical record reviewed: Yes There were no contraindications to performing an US guided procedure. Risks,expected side effects, potential benefits were reviewed. The patient consent form was signed and witnessed. Standard time out procedure was performed. Patient Safety No skin abnormalities at the insertion sites Procedure Description No sedation given for procedure Patient was placed in the prone position and the following Pulse Ox applied. Pre-Procedure ultrasound scanning performed using a Linear 18 MHz probe Site Preparation Chloroprep Local Anesthesia of Lidocaine 1%. A 21 G 3.5 Pajunk ultrasound needle was placed under live US guidance using an in-plane approach to the target area. After visualization of the needle tip at the target area Depo-Medrol 40mg per cc were used. Total of Injectate/Medication Note: 1cc Depomedrol and 5 cc 1% Lidocaine Negative aspiration for blood. [place] were removed without difficulty. Ultrasound images were captured and stored. Patient Mental Status Patient was alert during procedure Vital Signs Vital signs were stable throughout the procedure and recorded by nursing. Follow Up/Discharge Follow up plans and appointments were discussed with patient. Post procedure instruction was given as documented in nursing documentation. Discharge criteria met and patient discharged from Pain Management Center: Yes Post Procedure Pain Post Procedure Pain: 1/10 Patient tolerated procedure well Procedure Outcome: Successful Trigger Point Injection 3+muscles Non US Guided Injections Procedure Description Patient was placed in the prone position Post Procedure Pain Post Procedure Pain: 1/10
== END 2023-06-01 09:53 | disposition home or self-care (01) ==
LOC: PC 09:52
PROVIDERS: PCP Internal Medicine; Visit Provider Preventive Medicine Occupational Medicine
DX: M54.2 Cervicalgia (principal); M47.812 Spondylosis without myelopathy or radiculopathy, cervical region
CPT/HCPCS: 64633; 64634; 72040; J0665; J1010; J1100; J2003; J2250; J3010

== ENCOUNTER → 2023-09-13 20:57 | Outpatient (CLI) | payer MEDICARE, SELFPAY ==
--- NOTE | 2023-09-13 15:35 | DI.RAD_ITS ---
Exam(s) XR CERVICAL SP COMP W FLEX/EXT EXAM: XR CERVICAL SP COMP W FLEX/EXT CLINICAL HISTORY: M54.2 Cervicalgia, Posterior midline lower neck pain. TECHNIQUE: 2D digital imaging was performed. Seven views were performed. COMPARISON: No exams were available for comparison FINDINGS: BONES: No fracture or destructive lesion. Vertebral body height is maintained. Degenerative changes of the facet joints. DISKS: C2-3 and C3-4 disc spaces are maintained. There is mild disc space narrowing at C4-5. There is severe disc space narrowing at C5-6 and moderate disc space narrowing at C6-7. Endplate osteophyt es are seen. There is neural foraminal narrowing on the left at C4-5 and C5-6 at on the right from C 4-5 through C6-7. ALIGNMENT: Some reversal of the normal cervical lordosis and mild spondylolisthesis at C4-5 secondary to degenerative changes. Flexion and extension lateral views were performed in addition to the neut ral lateral view. There is subluxation with flexion or extension. There is limited range of motion. SOFT TISSUE: Benign calcifications in the upper left chest. The lung apices are clear. IMPRESSION: Advanced degenerative changes, greatest at C4-5 and C5-6. DATA REPOSITORY: RADIATION DOSE DELIVERED:
--- NOTE | 2023-09-13 15:35 | DI.RAD_ITS ---
Exam(s) XR THORACIC SPINE COMPLETE EXAM: XR THORACIC SPINE COMPLETE CLINICAL HISTORY: M54.9 dorsalgia, unspecifiedMid-back pain. TECHNIQUE: 2D digital imaging was performed. Three views. COMPARISON: No exams were available for comparison FINDINGS: BONES: There is no fracture or destructive lesion. The vertebral bodies and posterior elements are un remarkable. ALIGNMENT: Within normal limits. DISKS: Interverebral disc spaces show mild narrowing anteriorly. Small endplate osteophytes.. SOFT TISSUE: Small calcified mediastinal lymph nodes consistent with old granulomatous disease. Hear t size is normal. IMPRESSION: Mild degenerative changes. DATA REPOSITORY: RADIATION DOSE DELIVERED:
== END ==
PROVIDERS: PCP Internal Medicine; Visit Provider Preventive Medicine Occupational Medicine
DX: M51.34 Other intervertebral disc degeneration, thoracic region; M50.321 Other cervical disc degeneration at C4-C5 level; M50.322 Other cervical disc degeneration at C5-C6 level; M50.323 Other cervical disc degeneration at C6-C7 level
CPT/HCPCS: 72052; 72072

== ENCOUNTER 2023-11-10 11:43 | Outpatient (CLI) | payer MEDICARE, SELFPAY ==
[2023-11-10] VITALS (7 sets, daily range): BP systolic 133–178; BP diastolic 60–101; PULSE 83–93; RESP 11–18; TEMP 36.9; O2SAT 97–100
--- NOTE | 2023-11-10 06:00 | DI.RAD_ITS ---
Exam(s) XR PAIN CLINIC THORACIC SP 2V EXAM: XR PAIN CLINIC THORACIC SP 2V CLINICAL HISTORY: DX: Thoracic spondylosis. TECHNIQUE: Fluoroscopy was provided for the referring physician for guidance with performing pain cl inic injection procedure. COMPARISON: No exams were available for comparison FINDINGS: Please see procedure note for details. Fluoro time: 43.1 seconds RADIATION DOSE DELIVERED: nargis Trujillo=4.01 mGy
--- NOTE | 2023-11-10 12:39 | PDOC.PAIN_ITS ---
Date of service: 11/10/23 Time of Service: 12:39 Pain Managment Procedure Note Procedure Note Procedure Note: PROCEDURE NOTE BILATERAL THORACIC MEDIAL BRANCH BLOCKS Date of Service: November 10, 2023 Patient: Fadia Lomeli Provider: Joce Downey DO, MPH Fadia Lomeli has been referred to the [facility] for cervical medial branch blocks. Pre-operative diagnosis: Thoracic Spondylosis without Myelopathy Post-operative diagnosis: Same Pre-procedure pain: VAS= 6/10 COMMENTS: I previously evaluated her in the office. On fluoroscopic guidance I determined the painful facets were the bilateral T5-T6 and T6-T7 levels. Fadia? was interviewed and the medical records were reviewed. There were no medical, pharmacologic, radiographic or other structural contraindications to attempting fluoroscopically guided local anesthetic thoracic medial branch blocks. Risks and potential side effects were discussed. I also discussed the potential benefit(s) of the procedure with Fadia, and voiced concerns were addressed. After Fadia was completely informed about the procedure, the printed consent form was signed. A standard time-out procedure was performed. Fadia was placed in the prone position on the fluoroscopy table with the effected side up. Automated blood pressure cuff and pulse oximeter were applied. The skin entry points for approaching the anatomic target points of the segmental medial branches of bilateral T4, T5, and T6 were identified with fluoroscopy and marked. The skin at the target site area was thoroughly prepared with Chlorhexadine. The skin was then draped. Next, a 25 gauge 3.5 spinal needle was placed under fluoroscopic guidance down on to the target point for each respective segmental medial branch. Position was confirmed in A/P views. Aspiration revealed no blood or clear fluid. Next, 0.25ml of omnipaque 240 was injected at each level. No contrast following a vascular or neural pattern was visualized under continuous fluoroscopy. Next, 0.25 ml of preservative-free 0.5% bupivicaine was injected at each level. (47 mls of Omnipaque was wasted) There was no unusual discomfort expressed by Fadia. The needles were withdrawn without difficulty. Fadia was observed and was without hemodynamic, neurologic, or allergic reactions.? Fluoroscopic images were digitally archived. Fadia's vital signs were stable throughout the procedure and were as recorded in the doc flowsheet by the nursing staff. Provacative testing using the Modified Oden's facet loading test- Right side Directly before the block VAS (0-10) = 6/10 5 minutes after the block VAS (0-10) = 0/10 Percentage relief obtained with this diagnostic block 100% Any improved physical functioning directly after the blocks? Able to extend, flex and twist her mid-back without pain. Follow up plans and appointments were discussed with Fadia. Fadia was instructed to keep careful note of how the usual pain was modified by these injections. Specifically, to keep a pain diary for the next 4 hours using a numeric pain scale of 0-10 and report these results. Post procedure instruction was given as documented in the nursing documentation and having met discharge criteria, the patient was discharged from the [facility]. Based on the medial branches blocked today, if Fadia has adequate relief and we are able to proceed to radiofrequency ablation, the treatment should result in the denervation of the Bilateral T5-T6 and T6-T7 facet joints. We would expect to denervate a total of 4 facets during the radiofrequency ablation. COMMENTS: No apparent complications. Post-procedure pain: VAS= 0/10. Fadia will call back with 0-4 hour post-procedure pain scores. I personally performed the entire procedure. JOCE DOWNEY DO, MPH ABPM&R-subspecialty board certification in Pain Medicine [facility] [facility]
[2023-11-10] MEDS: Bupivacaine 0.5% Pres-Free 10 ML VIAL IJ (12:49)
[2023-11-10] MEDS: Nerve Block Tray 1 EACH MC (12:49)
[2023-11-10] MEDS: Omnipaque 240 MG/ML 50 ML BTL IJ (12:49)
== END 2023-11-10 11:44 | disposition home or self-care (01) ==
LOC: PC 11:44
PROVIDERS: PCP Internal Medicine; Visit Provider Preventive Medicine Occupational Medicine
DX: M47.814 Spondylosis without myelopathy or radiculopathy, thoracic region (principal); M54.59 Other low back pain
CPT/HCPCS: 64490; 64491; 72070; J0665; Q9967

== ENCOUNTER 2023-12-27 10:00 | Outpatient (CLI) | payer MEDICARE, SELFPAY ==
[2023-12-27 10:07] VITALS: BP 142/61; PULSE 94; RESP 20; TEMP 36.7; O2SAT 100
[2023-12-27 10:31] VITALS: PULSE 101; RESP 15; O2SAT 100
[2023-12-27 10:32] VITALS: BP 159/85; PULSE 100; PULSE 99; RESP 14; O2SAT 100
[2023-12-27 10:40] VITALS: PULSE 99; RESP 12; O2SAT 100
[2023-12-27 10:46] VITALS: BP 164/83; PULSE 92; PULSE 94; RESP 18; O2SAT 100
--- NOTE | 2023-12-27 10:46 | PDOC.PAIN ---
Date of service: 12/27/23 Time of Service: 10:46 Pain Managment Procedure Note Procedure Note Procedure Note: PROCEDURE NOTE Bilateral Thoracic Medial Branch Blocks Date of Service: December 27, 2023 Patient: Fadia Lomeli Provider: Joce Downey DO, MPH Fadia Lomeli has been referred to the [facility] for thoracic medial branch blocks. Pre-operative diagnosis: Thoracic Spondylosis without Myelopathy ICD-10 M47.814 Post-operative diagnosis: Same Pre-procedure pain: VAS= 9/10 COMMENTS: She did very well with the first set of TMBBs on 11/10/23 Fadia? was interviewed and the medical records were reviewed. There were no medical, pharmacologic, radiographic or other structural contraindications to attempting fluoroscopically guided local anesthetic thoracic medial branch blocks. Risks and potential side effects were discussed. I also discussed the potential benefit(s) of the procedure with Fadia, and voiced concerns were addressed. After Fadia was completely informed about the procedure, the printed consent form was signed. A standard time-out procedure was performed. Fadia was placed in the prone position on the fluoroscopy table. Automated blood pressure cuff and pulse oximeter were applied. The skin entry points for approaching the anatomic target points of the segmental medial branches of bilateral T4, T5, and T6 were identified with fluoroscopy and marked. The skin at the target site area was thoroughly prepared with Chlorhexadine. The skin was then draped. Next, a 25 gauge 3.5 spinal needle was placed under fluoroscopic guidance down on to the target point (the articular pillar) for each respective segmental medial branch. Position was confirmed in A/P and lateral views. Aspiration revealed no blood or clear fluid. Next, 0.25ml of omnipaque 240 was injected at each level. No contrast following a vascular or neural pattern was visualized under continuous fluoroscopy. Next, 0.25 ml of preservative-free 0.5% bupivicaine was injected at each level. There was no unusual discomfort expressed by Fadia. The needles were withdrawn without difficulty. (49 mls of Omnipaque was wasted) Fadia was observed and was without hemodynamic, neurologic, or allergic reactions.? Fluoroscopic images were digitally archived. Provacative testing - Left side Right Side Directly before the block VAS (0-10) = 9/10 VAS (0-10) = 9/10 Five minutes after the block VAS (0-10) = 1/10 VAS (0-10) = 1/10 Percentage relief obtained with this diagnostic block 90% 90% Any improved physical functioning directly after the blocks? Able to move her back with very little problem. Follow up plans and appointments were discussed with Fadia. Fadia was instructed to keep careful note of how the usual pain was modified by these injections. Specifically, to keep a pain diary for the next 4 hours using a numeric pain scale of 0-10 and report these results. Post procedure instruction was given as documented in the nursing documentation and having met discharge criteria, the patient was [facility] from the [facility]. Based on the medial branches blocked today, if they patient has adequate relief and we are able to proceed to radiofrequency ablation, the treatment should result in the denervation of the bilateral T3-T4 and T4-T5 facet joints. We would expect to denervate a total of 4 facets during the radiofrequency ablation. COMMENTS: No apparent complications. Post-procedure pain: VAS= 1/10 Fadia will call back with 0-4 hour post-procedure pain scores. I personally performed the entire procedure. JOCE DOWNEY DO, MPH ABPM&R-subspecialty board certification in Pain Medicine [facility] [facility]
[2023-12-27 10:50] VITALS: BP 137/61; PULSE 90
[2023-12-27] MEDS: Omnipaque 240 MG/ML 50 ML BTL IJ (10:53)
[2023-12-27] MEDS: Nerve Block Tray 1 EACH MC (10:53)
[2023-12-27] MEDS: Bupivacaine 0.5% Pres-Free 10 ML VIAL IJ (10:53)
--- NOTE | 2023-12-27 10:57 | DI.RAD_ITS ---
Exam(s) XR PAIN CLINIC THORACIC SP 2V EXAM: XR PAIN CLINIC THORACIC SP 2V CLINICAL HISTORY: DX:Thoracic Spondylosis. TECHNIQUE: Fluoroscopy was provided for the referring physician for guidance with performing pain cl inic injection procedure. COMPARISON: No exams were available for comparison FINDINGS: Please see procedure note for details. Fluoro time: 48.4 seconds RADIATION DOSE DELIVERED: Ronnier=4.0 mGy
== END 2023-12-27 10:01 | disposition home or self-care (01) ==
LOC: PC 10:00
PROVIDERS: PCP Internal Medicine; Visit Provider Preventive Medicine Occupational Medicine
DX: M54.59 Other low back pain (principal); M47.814 Spondylosis without myelopathy or radiculopathy, thoracic region
CPT/HCPCS: 64490; 64491; 72070; J0665; Q9967

== ENCOUNTER 2024-01-11 10:48 | Outpatient (CLI) | payer MEDICARE, SELFPAY ==
[2024-01-11] VITALS (16 sets, daily range): BP systolic 144–178; BP diastolic 60–97; PULSE 85–104; RESP 9–18; TEMP 36.4; O2SAT 100
[2024-01-11] MEDS: fentaNYL 100 MCG/2 ML VIAL IVP ×2 (12:25→12:40)
[2024-01-11] MEDS: Midazolam 2 MG/2 ML VIAL IVP (12:25)
--- NOTE | 2024-01-11 13:00 | DI.RAD_ITS ---
Exam(s) XR PAIN CLINIC THORACIC SP 2V EXAM: XR PAIN CLINIC THORACIC SP 2V CLINICAL HISTORY: DX: Thoracic Spondylosis TECHNIQUE: 2D and realtime digital imaging was performed. CONTRAST MATERIAL: Refer to procedure report. COMPARISON: No exams were available for comparison FINDINGS: Fluoroscopy was provided for Dr. Downey during the performance of a bilateral thoracic spine radiofreq uency ablation. Please refer to the procedure report for complete details. Ka,r=6.18 mGy IMPRESSION: RADIATION DOSE DELIVERED: 0.0 0.0 0
[2024-01-11] MEDS: Bupivacaine 0.5% Pres-Free 10 ML VIAL IJ (13:06)
[2024-01-11] MEDS: Lidocaine 2% Pres-Free 5 ML VIAL IJ (13:07)
--- NOTE | 2024-01-11 13:07 | PDOC.PAIN_ITS ---
Date of service: 01/11/24 Time of Service: 13:07 Pain Managment Procedure Note Procedure Note Procedure Note: PROCEDURE NOTE BILATERAL THORACIC RADIOFREQUENCY ABLATION Date of Service: January 11, 2024 Patient:? Fadia Lomeli? Provider:? Joce Downey DO, MPH Fadia Lomeli has been [facility] to the [facility] for Bilateral Thoracic Radiofrequency Ablation with the [employer] Machine.? Pre Operative Diagnosis: Thoracic Spondylosis without Myelopathy ICD-10 M47.814 Post Operative Diagnosis: Same Pre procedure pain; VAS= 9/10 Comments: She did very well with the TMBBs PROCEDURE: Radiofrequency Ablation of medial branches - bilateral T4, T5, and T6 medial branches. Fadia?was interviewed and the medical record was reviewed.? There were no medical, pharmacologic, radiographic or other structural contraindications to attempting fluoroscopically guided BILATERAL Thoracic Radiofrequency Ablation.?Risks and expected side effects as well as potential benefit of the procedure were reviewed with Fadia, and the patient's voiced concerns were addressed.? The printed consent form was signed.? Standard time-out procedure was performed. Fadia was brought into the fluoroscopy suite and positioned into the prone position on the fluoroscopy table and allowed to adjust to a position of comfort. A grounding pad was placed on the left abdomen. The sterile field was prepared using chlorhexidine preparation of the skin and sterile draping. Local anesthesia superficial and deep was provided by local infiltration of 2% lidocaine. A 17g 50 mm radiofrequency introducer needle was placed to the planned anatomic targets guided with intermittent fluoroscopy with a perpendicular approach to terminally place at the junction of the superior articular process and the transverse process of the bilateral T5, T6 and T7. The stylets were removed and radiofrequency probes with a 4mm active tip were then inserted. Needle tip position of the probes was verified in the AP, oblique, and lateral views. At each site, the medial branch nerve was stimulated at 2 Hz to a maximum 1-2 volts determined to finalize safe needle and electrode placement. The patient was awake and responsive during this portion of the procedure. Each target was anesthetized with 1-2 mL of 2 % Lidocaine for anesthesia for lesioning and then each target was lesioned at 80 degrees Celsius for 2 minutes and 30 seconds. Tissue impedances were noted to be between 250 and 500 Ohms. I then injected 1/6 cc of Dexamethasone (10 mg/cc) followed by 1 cc of 0.5% Bupivacaine. There was no unusual discomfort expressed by Fadia. The needles were withdrawn without difficulty and bandages placed over the needle placement sites, the patient was observed and was without hemodynamic, neurologic, or allergic reactions. Fluoroscopic images were digitally archived. POST PROCEDURE EVALUATION: IMPRESSION: 1. Summary of procedure. Medication given is documented in the MAR. 2. Follow up plan: Fadia to contact [facility] as robin d.?This procedure may be repeated if the patient achieves at least 50% improvement in pain/function for at least 6 months. 3. Estimated Blood Loss: <5 mls 4. Fluoroscopy time: Documented in the EMR. Follow up plans and appointments were discussed with the Fadia. Post procedure instruction was given as documented in nursing documentation and having met discharge criteria, Fadia was discharged from the [facility]. This advanced procedure uses cooled radiofrequency energy to safely target the sensory nerves responsible for sending pain signals.1 A radiofrequency generator transmits a small current of Radiofrequency energy through an insulated electrode, or probe, placed within tissue. Ionic heating, produced by the friction of charged molecules, thermally deactivates the nerves responsible for sending pain signals to the brain. Radiofrequency energy heats and cools the tissue at the site of pain. Unlike other Radiofrequency procedures, Coolief circulates water through the device while heating nervous tissue to create a larger treatment area, increasing the opportunity to help with pain. This combination targets the pain- transmitting nerves without excessive heating, leading to pain relief. COMMENTS: No apparent complications. Post-procedure pain: VAS= 2/10. I personally completed the entire procedure. JOCE DOWNEY DO, MPH ABPM&R - Subspecialty board certification in Pain Medicine [facility]
[2024-01-11] MEDS: Nerve Block Tray 1 EACH MC (13:08)
[2024-01-11] MEDS: Dexamethasone Sod. Phos./Pres-Free 10 MG/ML VIAL IJ (13:08)
== END 2024-01-11 10:49 | disposition home or self-care (01) ==
LOC: PC 10:48
PROVIDERS: PCP Internal Medicine; Visit Provider Preventive Medicine Occupational Medicine
DX: M54.50 Low back pain, unspecified (principal); M47.815 Spondylosis without myelopathy or radiculopathy, thoracolumbar region
CPT/HCPCS: 64635; 64636; 72070; J0665; J1100; J2250; J3010

== ENCOUNTER 2024-05-16 11:56 | Outpatient (CLI) | payer MEDICARE, SELFPAY ==
[2024-05-16] VITALS (12 sets, daily range): BP systolic 124–137; BP diastolic 42–53; PULSE 87–104; RESP 10–21; TEMP 36.8; O2SAT 96–100
--- NOTE | 2024-05-16 06:00 | DI.RAD_ITS ---
Exam(s) XR PAIN CLINIC CERVICAL SP 2V EXAM: XR PAIN CLINIC CERVICAL SP 2V CLINICAL HISTORY: DX: Cervical Spondylosis. TECHNIQUE: Fluoroscopy was provided for the referring physician for guidance with performing pain cl inic injection procedure. COMPARISON: No exams were available for comparison FINDINGS: Please see procedure note for details. Fluoro time: 50.3 seconds RADIATION DOSE DELIVERED: nargis Trujillo=4.84 mGy
[2024-05-16] MEDS: fentaNYL 100 MCG/2 ML VIAL IVP (13:04)
[2024-05-16] MEDS: Midazolam 2 MG/2 ML VIAL IVP (13:04)
[2024-05-16] MEDS: Nerve Block Tray 1 EACH MC (13:06)
[2024-05-16] MEDS: Lactated Ringers 500 ML 80 ML IV (13:07)
--- NOTE | 2024-05-16 13:35 | PDOC.PAIN_ITS ---
Date of service: 05/16/24 Time of Service: 13:35 Pain Managment Procedure Note Procedure Note Procedure Note: PROCEDURE NOTE LEFT Cervical Radiofrequency Ablation Date of Service: May 16, 2024 Patient:? Fadia Lomeli? Provider:? Joce Downey DO, MPH Fadia Lomeli [facility] Cervical Radiofrequency Ablation with the AvY[employer]ime[employer] Machine.? Pre Operative Diagnosis: Cervical Spondylosis without Myelopathy ICD-10 M47.812 Post Operative Diagnosis: Same Pre procedure pain; VAS= 7/10 Comments: She had >9 months of relief with her last cervical RFA in May 2023. Her pain has returned. PROCEDURE: 1. Left C3-C4 facet joint radiofrequency denervation 2. Left C4-C5 facet joint radiofrequency denervation 3. Left C5-C6 facet joint radiofrequency denervation Fadia?was interviewed and the medical record was reviewed.? There were no medical, pharmacologic, radiographic or other structural contraindications to attempting fluoroscopically guided LEFT Cervical Radiofrequency Ablation.?Risks and expected side effects as well as potential benefit of the procedure were reviewed with Fadia, and the patient's voiced concerns were addressed.? The printed consent form was signed.? Standard time-out procedure was performed. Fadia was brought to the procedure suite and placed on the exam table in a comfortable lateral recumbent position. A grounding pad was placed on the left abdomen. The place for the needle placement was obtained by manual palpation as well as radiographic confirmation. The sterile field was prepped by chlorhexidine and sterile drapes. Local anesthesia, both superficial and deep was provided by local infiltration of 3 ml Lidocaine 1%. Using fluoroscopic guidance, A 17g 50 mm radiofrequency introducer needle with a 2 mm active tip was placed overlying the left C3 cervical vertebra from the lateral approach and was advanced until bony contact was felt with the articular pillar. Attempted aspiration revealed no blood or cerebrospinal fluid. Motor testing was then performed with 2.0 volts and no upper extremity motor stimulation was observed. 1 ml of 2% Lidocaine was injected through the RF needle. A radiofrequency lesion of the Left medial branch of C3 was then performed at 80 degrees Celsius for 2 minutes and 30 seconds. There was no unusual discomfort expressed by Fadia. The needles were withdrawn without difficulty. Fadia was observed and was without hemodynamic, neurologic, or allergic reactions. Fluoroscopic images were digitally archived. The same procedure was repeated for Left C4, C5 and C6 medial branches. POST PROCEDURE EVALUATION: IMPRESSION: 1. Medication given is documented in the MAR 2. Follow up plan: [facility] to contact [facility] needed. This procedure may be repeated if the patient achieves at least 50% improvement in pain and/or function for at least 6 months. 3. Estimated Blood Loss: <5ml 4. Fluoroscopy time: Documented in the EMR Follow up plans and appointments were discussed with Fadia. Post procedure instruction was given as documented in nursing documentation and having met discharge criteria, Fadia was [facility] from the [facility]. This advanced procedure uses cooled radiofrequency energy to safely target the sensory nerves responsible for sending pain signals.1 A radiofrequency generator transmits a small current of Radiofrequency energy through an insulated electrode, or probe, placed within tissue. Ionic heating, produced by the friction of charged molecules, thermally deactivates the nerves responsible for sending pain signals to the brain. Radiofrequency energy heats and cools the tissue at the site of pain. Unlike other Radiofrequency procedures, Coolief circulates water through the device while heating nervous tissue to create a larger treatment area, increasing the opportunity to help with pain. This combination targets the pain- transmitting nerves without excessive heating, leading to pain relief. COMMENTS: No apparent complications. Post-procedure pain: VAS= 1/10. I personally performed this entire procedure. JOCE DOWNEY DO, MPH ABPM&R - Subspecialty board certification in Pain Medicine [facility] Coding Conscious Sedation used for procedure: Yes CPT Codes: Single Facet Joint, Cervical/Thoracic cool - 68062J (64251Q08~G) Single Facet Joint, Cervical/Thoracic cool each add'l - 90408U (53892P51~G) 2 units Additional Codes: Date of Service (02709) Date of service: 05/16/24
[2024-05-16] MEDS: Dexamethasone Sod. Phos./Pres-Free 10 MG/ML VIAL IJ (13:40)
[2024-05-16] MEDS: Lidocaine 2% Pres-Free 5 ML VIAL IJ (13:41)
[2024-05-16] MEDS: Bupivacaine 0.5% Pres-Free 10 ML VIAL IJ (13:42)
== END 2024-05-16 11:57 | disposition home or self-care (01) ==
LOC: PC 11:57
PROVIDERS: PCP Internal Medicine; Visit Provider Preventive Medicine Occupational Medicine
DX: M54.2 Cervicalgia (principal); M47.812 Spondylosis without myelopathy or radiculopathy, cervical region
CPT/HCPCS: 64633; 64634; 72040; J0665; J1100; J2250; J3010

== ENCOUNTER 2024-10-03 11:56 | Outpatient (CLI) | payer MEDICARE, SELFPAY ==
[2024-10-03] VITALS (17 sets, daily range): BP systolic 150–201; BP diastolic 61–96; PULSE 70–91; RESP 8–18; TEMP 37; O2SAT 90–100
--- NOTE | 2024-10-03 06:00 | DI.RAD_ITS ---
Exam(s) XR PAIN CLINIC THORACIC SP 2V EXAM: XR PAIN CLINIC THORACIC SP 2V CLINICAL HISTORY: DX: Thoracic Radiculopathy TECHNIQUE: 2D and realtime digital imaging was performed. CONTRAST MATERIAL: Refer to procedure report. COMPARISON: No exams were available for comparison FINDINGS: Fluoroscopy was provided for Dr. Downey during the performance of a bilateral thoracic radiofrequency ablation. Please refer to the procedure report for complete details. Ka,r=4.89 mGy IMPRESSION: RADIATION DOSE DELIVERED: 0.0 0.0 0
[2024-10-03] MEDS: fentaNYL 100 MCG/2 ML VIAL IJ (13:05)
[2024-10-03] MEDS: Midazolam 2 MG/2 ML VIAL IVP (13:05)
[2024-10-03] MEDS: Lactated Ringers 500 ML 30 ML IV (13:23)
[2024-10-03] MEDS: Dexamethasone Sod. Phos./Pres-Free 10 MG/ML VIAL IJ (13:52)
[2024-10-03] MEDS: Lidocaine 2% Pres-Free 5 ML VIAL IJ (13:53)
[2024-10-03] MEDS: Nerve Block Tray 1 EACH MC (13:54)
[2024-10-03] MEDS: Bupivacaine 0.5% Pres-Free 10 ML VIAL IJ (13:54)
--- NOTE | 2024-10-03 13:57 | PDOC.PAIN_ITS ---
Date of service: 10/03/24 Time of Service: 13:57 Pain Managment Procedure Note Procedure Note Procedure Note: PROCEDURE NOTE Bilateral Thoracic Radiofrequency Ablation Date of Service: October 03, 2024 Patient:? Fadia Lomeli? Provider:? Joce Downey DO, MPH Fadia Lomeli has [facility] to [facility] LEFTRIGHT Cervical Radiofrequency Ablation with the AvBioceross Machine.? Pre Operative Diagnosis: Thoracic Spondylosis without Myelopathy ICD-10 M47.814 Post Operative Diagnosis: Same Pre procedure pain; VAS= 7/10 Comments: PROCEDURE: 1. Bilateral T5-T6 facet joint radiofrequency denervation 2. Bilateral T6-T7 facet joint radiofrequency denervation Fadia?was interviewed and the medical record was reviewed.? There were no medical, pharmacologic, radiographic or other structural contraindications to attempting fluoroscopically guided BILATERAL Thoracic Radiofrequency Ablation.?Risks and expected side effects as well as potential benefit of the procedure were reviewed with Fadia, and the patient's voiced concerns were addressed.? The printed consent form was signed.? Standard time-out procedure was performed. Fadia was brought to the procedure suite and placed on the exam table in a comfortable lateral recumbent position. A grounding pad was placed on the left abdomen. The place for the needle placement was obtained by manual palpation as well as radiographic confirmation. The sterile field was prepped by chlorhexidine and sterile drapes. Local anesthesia, both superficial and deep was provided by local infiltration of 3 ml Lidocaine 1%. Using fluoroscopic guidance, A 17g 50 mm radiofrequency introducer needle with a 2 mm active tip was placed overlying the left T5 thoracic vertebra from the lateral approach and was advanced until bony contact was felt with the articular pillar. Attempted aspiration revealed no blood or cerebrospinal fluid. Motor testing was then performed with 2.0 volts and no upper extremity motor stimulation was observed. 1 ml of 2% Lidocaine was injected through the RF needle. A radiofrequency lesion of the Left medial branch of T4 was then performed at 80 degrees Celsius for 2 minutes and 30 seconds. There was no unus ual discomfort expressed by Fadia. The needles were withdrawn without difficulty. Fadia was observed and was without hemodynamic, neurologic, or allergic reactions. Fluoroscopic images were digitally archived. The same procedure was repeated for Left T5 and T6 as well as the Right T4, T5 and T6 medial branches. POST PROCEDURE EVALUATION: IMPRESSION: 1. Medication given is documented in the MAR 2. Follow up plan: [facility]ia to contact [facility] needed. This procedure may be repeated if the patient achieves at least 50% improvement in pain and/or function for at least 6 months. 3. Estimated Blood Loss: <5ml 4. Fluoroscopy time: Documented in the EMR Follow up plans and appointments were discussed with Fadia. Post procedure instruction was given as documented in nursing documentation and having met discharge criteria, Fadia was [facility] from the [facility]. This advanced procedure uses cooled radiofrequency energy to safely target the sensory nerves responsible for sending pain signals. A radiofrequency generator transmits a small current of Radiofrequency energy through an insulated electrode, or probe, placed within tissue. Ionic heating, produced by the friction of charged molecules, thermally deactivates the nerves responsible for sending pain signals to the brain. Radiofrequency energy heats and cools the tissue at the site of pain. Unlike other Radiofrequency procedures, Coolief circulates water through the device while heating nervous tissue to create a larger treatment area, increasing the opportunity to help with pain. This combination targets the pain- transmitting nerves without excessive heating, leading to pain relief. COMMENTS: No apparent complications. Post-procedure pain: VAS= 4/10. I personally performed this entire procedure. JOCE DOWNEY DO, MPH ABPM&R - Subspecialty board certification in Pain Medicine [facility] Coding Conscious Sedation used for procedure: Yes CPT Codes: Single Facet Joint, Cervical/Thoracic cool - 67915P (56884H95~G) bilateral Single Facet Joint, Cervical/Thoracic cool each add'l - 54976M (19885Q27~G) Bilateral Additional Codes: Date of Service (06530) Date of service: 10/03/24 Diagnoses: Thoracic spondylosis without myelopathy
== END 2024-10-03 11:57 | disposition home or self-care (01) ==
LOC: PC 11:57
PROVIDERS: PCP Internal Medicine; Visit Provider Preventive Medicine Occupational Medicine
DX: M47.814 Spondylosis without myelopathy or radiculopathy, thoracic region (principal); M54.6 Pain in thoracic spine
CPT/HCPCS: 64633; 64634; 72070; J0665; J1100; J2250; J3010